=== PATIENT | female | born 1950 ===

== ENCOUNTER 2018-02-06 08:33 | Day surgery (SDC) | payer MEDICARE, OTHER ==
[~2018-02-06 08:33] MED LIST: Cefuroxime 10 MG/ML SYRINGE EYERT SCH; Lidocaine 1% PF 2 ML SDV INJECT SCH; Phenylephrine 2.5% Ophth Soln 2 ML Bot EYERT SCH; Pilocarpine 4% Ophth Soln 15 ML Bot EYERT SCH; Tropicamide 1% Ophth Soln 3 ML Bottle EYERT SCH
[2018-02-06] MEDS: Ofloxacin 0.3% Ophth Soln 5 ML Bottle EYERT SCH ×3 (08:57→10:53)
[2018-02-06] MEDS: Brimonidine 0.2% Ophth Soln 5 ML Bottle EYERT SCH ×3 (09:03→10:53)
--- NOTE | 2018-02-06 09:09 | PCM.PREANE ---
Preanesthetic Assessment - Procedure Proposed Procedure: Left eye cataract extraction with IOL - Anesthesia/Transfusion/Family Hx Anesthesia History: Prior Anesthesia Reaction Type of Anesthesia Reaction: Other (see below) (patient states anesthesia does not work for her ) Family History of Anesthesia Reaction: No Transfusion History: No Prior Transfusion(s) - Review of Systems General: No Symptoms Pulmonary: Other (seasonal allergies ) Cardiovascular: No Symptoms Gastrointestinal: Other (GERD) Neurological: No Symptoms Other: Reports: None - Physical Assessment NPO Status Date: 02/05/18 NPO Status Time: 21:00 O2 Sat by Pulse Oximetry: 94 Respiratory Rate: 16 Vital Signs: Last Vital Signs Temp 36.7 C 02/06/18 08:40 Pulse 95 02/06/18 08:40 Resp 16 02/06/18 08:40 BP 135/76 02/06/18 08:40 Pulse Ox 94 L 02/06/18 08:40 Height: 1.57 m Weight: 69.4 kg Mental Status: Alert & Oriented x3 Airway Class: Mallampati = 1 Dentition: Reports: Normal Dentition Thyro-Mental Finger Breadths: 3 Mouth Opening Finger Breadths: 3 ROM/Head Extension: Full Lungs: Clear to Auscultation, Normal Respiratory Effort Cardiovascular: Regular Rate, Regular Rhythm - Allergies Allergies/Adverse Reactions: Allergies Allergy/AdvReac Type Severity Reaction Status Date / Time montelukast [From Singulair] Allergy Cannot Verified 02/05/18 13:20 Remember Penicillins Allergy Cannot Verified 02/05/18 13:20 Remember Sulfa (Sulfonamide Allergy Cannot Verified 02/05/18 13:20 Antibiotics) Remember - Blood Blood Available: No Product(s) Available: None - Anesthesia Plan Pre-Op Medication Ordered: None - Acknowledgements Anesthesia Type Planned: MAC Pt an Appropriate Candidate for the Planned Anesthesia: Yes Alternatives and Risks of Anesthesia Discussed w Pt/Guardian: Yes Pt/Guardian Understands and Agrees with Anesthesia Plan: Yes PreAnesthesia Questionnaire - HOME MEDS Home Medications: Home Meds . [Unable to Verify Home Med List] 02/05/18 [History] - CURRENT (IN HOUSE) MEDS Current Meds: Current Medications Brimonidine Tartrate (Alphagan 0.2% Ophth Soln) 0 ml EYERT ASDIRECTED EDUARDO Stop: 02/06/18 18:00 Last Admin: 02/06/18 09:03 Dose: 1 drop Cefuroxime Sodium (Zinacef) 0 mg EYERT ASDIRECTED EDUARDO Stop: 02/06/18 18:00 Lidocaine HCl (Xylocaine-Mpf 1%) 0 ml INJECT ASDIRECTED EDUARDO Stop: 02/06/18 18:00 Ofloxacin (Ocuflox 0.3% Ophth Soln) 0 ml EYERT ASDIRECTED EDUARDO Stop: 02/06/18 18:00 Last Admin: 02/06/18 08:57 Dose: 1 drop Phenylephrine HCl (Royce-Synephrine 2.5% Ophth Soln) 0 ml EYERT ASDIRECTED EDUARDO Stop: 02/06/18 18:00 Pilocarpine HCl (Pilocar 4% Ophth Soln) 0 ml EYERT ASDIRECTED EDUARDO Stop: 02/06/18 18:00 Tetracaine HCl (Tetracaine 0.5% Steri-Unit Olivia) 0 ml EYERT ASDIRECTED EDUARDO Stop: 02/06/18 18:00 Tropicamide (Mydriacyl 1% Ophth Soln) 0 ml EYERT ASDIRECTED EDUARDO Stop: 02/06/18 18:00 Discontinued Medications Phenylephrine HCl (Royce-Synephrine 2.5% Ophth Soln) 0 ml EYERT ASDIRECTED EDUARDO Stop: 02/06/18 18:00 Tropicamide (Mydriacyl 1% Ophth Soln) 0 ml EYERT ASDIRECTED EDUARDO Stop: 02/06/18 18:00
[2018-02-06] MEDS: Phenylephrine 2.5% Ophth Soln 15 ML Bot EYERT SCH ×4 (09:12→10:05)
[2018-02-06] MEDS: Tropicamide 1% Ophth Soln 15 ML Bottle EYERT SCH ×4 (09:17→10:15)
[2018-02-06] MEDS: Tetracaine HCl/PF 0.5% 4 ML Bottle EYERT SCH ×2 (10:22→10:42)
--- NOTE | 2018-02-06 10:57 | PCM48HPAN ---
Post Anesthesia Note - EVALUATION WITHIN 48HRS OF ANESTHETIC Vital Signs in Normal Range: Yes Patient Participated in Evaluation: Yes Respiratory Function Stable: Yes Airway Patent: Yes Cardiovascular Function Stable: Yes Hydration Status Stable: Yes Pain Control Satisfactory: Yes Nausea and Vomiting Control Satisfactory: Yes Mental Status Recovered: Yes
== END 2018-02-06 11:08 | disposition home or self-care (01) ==
LOC: JD.SDS 08:33
PROVIDERS: ATTEND Ophthalmology
DX: H25.813 Combined forms of age-related cataract, bilateral (principal); H40.003 Preglaucoma, unspecified, bilateral; H16.103 Unspecified superficial keratitis, bilateral; H16.223 Keratoconjunctivitis sicca, not specified as Sjogren's, bilateral; H02.834 Dermatochalasis of left upper eyelid; H02.831 Dermatochalasis of right upper eyelid; H52.31 Anisometropia; Z79.82 Long term (current) use of aspirin; Z79.899 Other long term (current) drug therapy; Z88.0 Allergy status to penicillin; Z88.2 Allergy status to sulfonamides; Z88.8 Allergy status to other drugs, medicaments and biological substances; Z87.891 Personal history of nicotine dependence
CPT/HCPCS: 66984; C1780; J0697; A9270-GY; J2001

== ENCOUNTER 2018-03-06 06:53 | Day surgery (SDC) | payer MEDICARE, OTHER ==
[2018-03-06] MEDS: Ofloxacin 0.3% Ophth Soln 5 ML Bottle EYELF SCH ×4 (07:06→08:37)
[2018-03-06] MEDS: Brimonidine 0.2% Ophth Soln 5 ML Bottle EYELF SCH ×4 (07:10→08:37)
--- NOTE | 2018-03-06 07:14 | PCM.PREANE ---
Preanesthetic Assessment - Anesthesia/Transfusion/Family Hx Anesthesia History: Prior Anesthesia Reaction Family History of Anesthesia Reaction: No Transfusion History: No Prior Transfusion(s) - Review of Systems General: Other (sinus drainage) Pulmonary: No Symptoms Cardiovascular: No Symptoms Gastrointestinal: Other (GERD) Neurological: No Symptoms Other: Reports: None, Sinus Problem - Physical Assessment NPO Status Date: 03/05/18 NPO Status Time: 21:00 Pulse: 88 O2 Sat by Pulse Oximetry: 97 Respiratory Rate: 16 Blood Pressure: 133/73 Weight: 69.4 kg ASA Class: 2 Mental Status: Alert & Oriented x3 Airway Class: Mallampati = 2 Dentition: Reports: Normal Dentition Thyro-Mental Finger Breadths: 3 Mouth Opening Finger Breadths: 3 ROM/Head Extension: Full Lungs: Clear to Auscultation, Normal Respiratory Effort Cardiovascular: Regular Rate, Regular Rhythm - Allergies Allergies/Adverse Reactions: Allergies Allergy/AdvReac Type Severity Reaction Status Date / Time montelukast [From Singulair] Allergy Cannot Verified 03/05/18 12:36 Remember Penicillins Allergy Cannot Verified 03/05/18 12:36 Remember Sulfa (Sulfonamide Allergy Cannot Verified 03/05/18 12:36 Antibiotics) Remember - Blood Blood Available: No Product(s) Available: None - Anesthesia Plan Pre-Op Medication Ordered: None - Acknowledgements Anesthesia Type Planned: MAC Pt an Appropriate Candidate for the Planned Anesthesia: Yes Alternatives and Risks of Anesthesia Discussed w Pt/Guardian: Yes Pt/Guardian Understands and Agrees with Anesthesia Plan: Yes PreAnesthesia Questionnaire - HOME MEDS Home Medications: Home Meds . [Unable to Verify Home Med List] 02/05/18 [History] - CURRENT (IN HOUSE) MEDS Current Meds: Current Medications Brimonidine Tartrate (Alphagan 0.2% Ophth Soln) 0 ml EYELF ASDIRECTED EDUARDO Stop: 03/06/18 18:00 Lidocaine HCl (Xylocaine-Mpf 1%) 0 ml INJECT ONETIME EDUARDO Stop: 03/06/18 18:00 Ofloxacin (Ocuflox 0.3% Ophth Soln) 0 ml EYELF ASDIRECTED EDUARDO Stop: 03/06/18 18:00 Last Admin: 03/06/18 07:06 Dose: 1 drop Phenylephrine HCl (Royce-Synephrine 2.5% Ophth Soln) 0 ml EYELF ASDIRECTED EDUARDO Stop: 03/06/18 18:00 Pilocarpine HCl (Pilocar 4% Ophth Soln) 0 ml EYELF ASDIRECTED EDUARDO Stop: 03/06/18 18:00 Tetracaine HCl (Tetracaine 0.5% Steri-Unit Olivia) 0 ml EYELF ASDIRECTED EDUARDO Stop: 03/06/18 18:00 Tropicamide (Mydriacyl 1% Ophth Soln) 0 ml EYELF ASDIRECTED EDUARDO Stop: 03/09/18 07:01
[2018-03-06] MEDS: Phenylephrine 2.5% Ophth Soln 2 ML Bot EYELF SCH ×6 (07:15→08:15)
[2018-03-06] MEDS: Tropicamide 1% Ophth Soln 15 ML Bottle EYELF SCH ×4 (07:18→07:51)
[2018-03-06] MEDS: Tetracaine HCl/PF 0.5% 4 ML Bottle EYELF SCH ×3 (07:56→08:24)
[2018-03-06] MEDS: Lidocaine 1% PF 2 ML SDV INJECT SCH ×2 (07:57→08:24)
[2018-03-06] MEDS: Pilocarpine 4% Ophth Soln 15 ML Bot EYELF SCH ×2 (07:58→08:37)
--- NOTE | 2018-03-06 08:41 | PCM48HPAN ---
Post Anesthesia Note - EVALUATION WITHIN 48HRS OF ANESTHETIC Vital Signs in Normal Range: Yes Patient Participated in Evaluation: Yes Respiratory Function Stable: Yes Airway Patent: Yes Cardiovascular Function Stable: Yes Hydration Status Stable: Yes Pain Control Satisfactory: Yes Nausea and Vomiting Control Satisfactory: Yes Mental Status Recovered: Yes Pulse Rate: 81 SaO2: 97 Resp Rate: 16 Temperature: 36 C Blood Pressure: 124/61
== END 2018-03-06 08:50 | disposition home or self-care (01) ==
LOC: JD.SDS 06:53
PROVIDERS: ATTEND Ophthalmology
DX: H25.812 Combined forms of age-related cataract, left eye (principal); H40.053 Ocular hypertension, bilateral; H52.31 Anisometropia; H16.103 Unspecified superficial keratitis, bilateral; H16.223 Keratoconjunctivitis sicca, not specified as Sjogren's, bilateral; H02.834 Dermatochalasis of left upper eyelid; H02.831 Dermatochalasis of right upper eyelid; K21.9 Gastro-esophageal reflux disease without esophagitis; Z98.41 Cataract extraction status, right eye; Z96.1 Presence of intraocular lens; Z79.82 Long term (current) use of aspirin; Z79.899 Other long term (current) drug therapy; Z88.0 Allergy status to penicillin; Z88.2 Allergy status to sulfonamides; Z88.8 Allergy status to other drugs, medicaments and biological substances; Z87.891 Personal history of nicotine dependence
CPT/HCPCS: 66984; A9270; C1780; J2001

== ENCOUNTER 2018-08-30 10:16 | Emergency (ER) | payer MEDICARE, OTHER ==
[2018-08-30] MEDS ORDERED: predniSONE 20 MG Tab PO ONE (10:51)
--- NOTE | 2018-08-30 11:08 | EDM.PDOC ---
ED HPI GENERAL MEDICAL PROBLEM - General Chief Complaint: Allergic Reaction Stated Complaint: LIP SWOLLEN/ALLERGIC REACTION Time Seen by Provider: 08/30/18 10:34 Source of Information: Reports: Patient, RN Notes Reviewed - History of Present Illness INITIAL COMMENTS - FREE TEXT/NARRATIVE: 67-year-old lady comes in with swelling of her mouth. This started about 2-1/2 days ago, worse yesterday and continuing this morning. She does take drops for her eyes which she states is "to prevent glaucoma". She has had prior cataract surgery both eyes. She is on no other regular medication at all whatsoever. She does not take medicine for hypertension. She has not been eating anything out of the ordinary to do this. No other contact exposure that she would be aware of. There is no generalized swelling of her face, just her mouth more so the lower lip. Her tongue does not feel swollen. She has not had difficulty swallowing or breathing. She's not been ill with sore throat sinus congestion or anything of that nature. No rash or itchiness. - Related Data Allergies Allergy/AdvReac Type Severity Reaction Status Date / Time montelukast [From Singulair] Allergy Cannot Verified 08/30/18 10:28 Remember Penicillins Allergy Cannot Verified 08/30/18 10:28 Remember Sulfa (Sulfonamide Allergy Cannot Verified 08/30/18 10:28 Antibiotics) Remember Home Meds: Home Meds Ascorbate Calcium/Bioflavonoid [Kenzie-C 500 MG] 1 tab PO DAILY 08/30/18 [History ] Ascorbic Acid/Collagen Hydr [Collagen Plus Vit C] 1 cap PO DAILY 08/30/18 [ History] Aspirin 81 mg PO DAILY 08/30/18 [History] Biotin 10 mg PO DAILY 08/30/18 [History] Brinzolamide/Brimonidine Tart [Simbrinza 1%-0.2% Eye Drops] 1 drop EYEBOTH BID 08/30/18 [History] Calcium Carb/Magnesium Oxid/D3 [Calcium Magnesium + D] 1 tab PO DAILY 08/30/18 [ History] Cartilage/Collagen/Bor/Hyalur [Joint Health Tablet] 1 tab PO DAILY 08/30/18 [ History] Cetirizine [ZyrTEC] 10 mg PO DAILY 08/30/18 [History] Dextran 70/Hypromellose [Bion Tears] 1 tab PO DAILY 08/30/18 [History] Loratadine/Pseudoephedrine [Claritin-D 12 Hour] 10 mg PO DAILY 08/30/18 [History ] Multivitamin [Multivitamins] 1 tab PO DAILY 08/30/18 [History] Potassium 99 mg PO DAILY 08/30/18 [History] S-Adenosylmethionine Sul Tosyl [Elian-E] 400 mg PO DAILY 08/30/18 [History] Vitamin B Complex [Balanced B-50] 1 tab PO DAILY 08/30/18 [History] Zinc Gluconate [Zinc] 1 tab PO DAILY 08/30/18 [History] cycloSPORINE [Restasis] 1 drop OP DAILY 08/30/18 [History] diphenhydrAMINE [Benadryl] 25 mg PO DAILY 08/30/18 [History] Past Medical History Dermatologic History: Reports: Eczema - Past Surgical History HEENT Surgical History: Reports: Cataract Surgery Social & Family History - Tobacco Use Smoking Status *Q: Former Smoker Used Tobacco, but Quit: Yes Month/Year Tobacco Last Used: 06/1975 - Caffeine Use Caffeine Use: Reports: Coffee, Tea - Recreational Drug Use Recreational Drug Use: No ED ROS ALLERGIC REACTION - Review of Systems Review Of Systems: See Below Constitutional: Denies: Fever, Chills, Diaphoresis HEENT: Denies: Dental Pain, Throat Pain, Throat Swelling Respiratory: Denies: Shortness of Breath Cardiovascular: Denies: Chest Pain GI/Abdominal: Denies: Abdominal Pain, Nausea, Vomiting Skin: Reports: No Symptoms. Denies: Rash ED EXAM GENERAL NO PERIP PULSE - Physical Exam Exam: See Below General Appearance: Alert, No Apparent Distress Eye Exam: Bilateral Eye: PERRL Nose: Normal Inspection Throat/Mouth: Normal Teeth (Dental exam is normal), Normal Oropharynx (Throat is not swollen or inflamed), Other (There is moderate diffuse swelling of the lower lip, mild swelling of the upper, no inflammatory lesions present whatsoever, no vesicles or vesiculation.) Head: Facial Swelling (Primarily the lower mouth and to a lesser extent the upper mouth) Neck: Supple Respiratory/Chest: No Respiratory Distress, Lungs Clear, Normal Breath Sounds. No: Rhonchi, Wheezing Cardiovascular: Regular Rate, Rhythm Neurological: Alert, Oriented, No Motor/Sensory Deficits Skin Exam: Warm, Dry, Normal Color Course - Vital Signs Last Recorded V/S: Last Vital Signs Temp 97.5 F 08/30/18 10:31 Pulse 96 08/30/18 10:31 Resp 20 08/30/18 10:31 BP 110/88 08/30/18 10:31 Pulse Ox 100 08/30/18 10:31 - Orders/Labs/Meds Meds: Medications Discontinued Medications Generic Name Dose Route Start Last Admin Trade Name Nicholas PRN Reason Stop Dose Admin Prednisone 40 mg 08/30/18 10:51 08/30/18 11:03 Prednisone PO 08/30/18 10:52 40 mg ONETIME ONE Administration Departure - Departure Time of Disposition: 11:25 Disposition: Home, Self-Care 01 Condition: Fair Clinical Impression: Allergic reaction caused by a drug Qualifiers: Encounter type: initial encounter Qualified Code(s): T78.40XA - Allergy, unspecified, initial encounter - Discharge Information Instructions: Drug Allergy, [id number] Referrals: PCP,None [Primary Care Provider] - Forms: ED Department Discharge Additional Instructions: Stop the eyedrops as advised by her eye doctor, you have been given prednisone 40 mg orally while here in the ED. Continue Zyrtec on a daily basis until symptoms resolve, you may take occasional Benadryl in addition if needed for severe swelling. Continue prednisone 40 mg daily for the next 5 days. Follow-up with your regular medical provider if not much better within 3-4 days as expected. Return to ED as needed if symptoms worsening in any way.
== END 2018-08-30 11:23 | disposition home or self-care (01) ==
LOC: JD.ED 10:16
DX: T78.40XA Allergy, unspecified, initial encounter (principal); R22.0 Localized swelling, mass and lump, head; H40.9 Unspecified glaucoma; Z88.0 Allergy status to penicillin; Z88.2 Allergy status to sulfonamides; Z79.899 Other long term (current) drug therapy; Z87.891 Personal history of nicotine dependence
CPT/HCPCS: 99283; A9270

== ENCOUNTER → 2018-10-02 | Day surgery (SDC) | payer MEDICARE, OTHER ==
[~2018-10-02] MED LIST changes: +Brimonidine 0.2% Ophth Soln 5 ML Bottle EYEBOTH SCH; -Cefuroxime 10 MG/ML SYRINGE EYERT SCH; -Lidocaine 1% PF 2 ML SDV INJECT SCH; +Phenylephrine 2.5% Ophth Soln 2 ML Bot EYEBOTH SCH; +Phenylephrine 2.5% Ophth Soln 2 ML Bot EYELF SCH; -Phenylephrine 2.5% Ophth Soln 2 ML Bot EYERT SCH; -Pilocarpine 4% Ophth Soln 15 ML Bot EYERT SCH; +Tropicamide 1% Ophth Soln 15 ML Bottle EYEBOTH SCH; -Tropicamide 1% Ophth Soln 3 ML Bottle EYERT SCH
== END ==
LOC: JD.SDS 10:44
PROVIDERS: ATTEND Ophthalmology
DX: H26.493 Other secondary cataract, bilateral (principal); H01.02B Squamous blepharitis left eye, upper and lower eyelids; H01.02A Squamous blepharitis right eye, upper and lower eyelids; H26.223 Cataract secondary to ocular disorders (degenerative) (inflammatory), bilateral; H02.834 Dermatochalasis of left upper eyelid; H02.831 Dermatochalasis of right upper eyelid; H40.053 Ocular hypertension, bilateral; Z96.1 Presence of intraocular lens; Z79.1 Long term (current) use of non-steroidal anti-inflammatories (NSAID); Z79.82 Long term (current) use of aspirin; Z79.52 Long term (current) use of systemic steroids; Z79.899 Other long term (current) drug therapy; Z88.0 Allergy status to penicillin; Z88.2 Allergy status to sulfonamides; Z88.8 Allergy status to other drugs, medicaments and biological substances